=== PATIENT | male | born 1980 | race Caucasian/White ===

== ENCOUNTER 2018-09-17 16:56 | Emergency (ER) | payer BC, SELFPAY ==
[2018-09-17 17:04] VITALS: BP 141/81; PULSE 80; RESP 16; TEMP 36.7; O2SAT 100
--- NOTE | 2018-09-17 18:45 | NUR.NOTE ---
Nursing Note: Access called and stated that the patient LWBS bacause he had to go back to work. Ryann Guy
== END 2018-09-17 22:38 | disposition left before discharge ==
PROVIDERS: PCP Physician Assistant
DX: Z53.21 Procedure and treatment not carried out due to patient leaving prior to being seen by health care provider (principal)